=== PATIENT | male | born 1940 | race Caucasian/White ===

== ENCOUNTER 2019-10-08 15:41 | Emergency (ER) | payer OTHER ==
[~2019-10-08] VITALS: Ht 172.7 cm; Wt 85.3 kg
[2019-10-08] MEDS ORDERED: ATEN50 PO (16:16)
[2019-10-08] MEDS ORDERED: Benazepril HCl20 MG (16:17)
[2019-10-08] MEDS ORDERED: PROZAC20 MG (16:17)
[2019-10-08] MEDS ORDERED: DONEPEZIL HCL10 M1 (16:17)
[2019-10-08] MEDS ORDERED: MEMA10 (16:18)
[2019-10-08] MEDS ORDERED: Metformin HCl1000 MG (16:18)
[2019-10-08] MEDS ORDERED: BASAGLAR K100 UNIT/1 (16:18)
[2019-10-08] MEDS ORDERED: Pravastatin Sod80 MG (16:19)
[2019-10-08] MEDS ORDERED: Omeprazole Dr 40 Mg (16:19)
[2019-10-08] MEDS ORDERED: NOVOLOG FL100 UNIT/1 (16:19)
[2019-10-08] MEDS ORDERED: TAMSULOSIN HCL0.4 M1 (16:20)
[2019-10-08] MEDS ORDERED: Zanaflex4 MG (16:20)
[2019-10-08] MEDS ORDERED: Mobic15 MG PO (16:21)
[2019-10-08] MEDS ORDERED: Glucagon Emergen1 MG IM (16:21)
[2019-10-08] MEDS ORDERED: NITR.4SL SL (16:21)
[2019-10-08] MEDS ORDERED: Depo-Testos200 MG/ML IM (16:22)
== END 2019-10-08 17:10 | disposition home or self-care (01) ==
LOC: ER 15:41
DX: I95.9 Hypotension, unspecified (principal); I25.10 Atherosclerotic heart disease of native coronary artery without angina pectoris; E11.9 Type 2 diabetes mellitus without complications; I10 Essential (primary) hypertension; F03.90 Unspecified dementia, unspecified severity, without behavioral disturbance, psychotic disturbance, mood disturbance, and anxiety; N40.0 Benign prostatic hyperplasia without lower urinary tract symptoms; Z95.1 Presence of aortocoronary bypass graft; Z79.899 Other long term (current) drug therapy; Z79.4 Long term (current) use of insulin; R42 Dizziness and giddiness
CPT/HCPCS: 80053; 84484; 99283

== ENCOUNTER → 2019-10-08 | Outpatient (CLI) | payer OTHER ==
[~2019-10-08] MED LIST: ATEN50 PO; BASAGLAR K100 UNIT/1; Benazepril HCl20 MG; DONEPEZIL HCL10 M1; Depo-Testos200 MG/ML IM; Glucagon Emergen1 MG IM; MEMA10; Metformin HCl1000 MG; Mobic15 MG PO; NITR.4SL SL; NOVOLOG FL100 UNIT/1; Omeprazole Dr 40 Mg; PROZAC20 MG; Pravastatin Sod80 MG; TAMSULOSIN HCL0.4 M1; Zanaflex4 MG
[2019-10-08 15:04] LABS: BASOPHILS ABSOLUTE AUTO 0.05 K/mm3 (0.00-0.23); BASOPHILS PERCENT AUTO 0 % (0-2); EOSINOPHILS ABSOLUTE AUTO 0.35 K/mm3 (0.00-0.68); EOSINOPHILS PERCENT AUTO 3 % (0-6); Hematocrit 37.2 % (37.0-53.0); Hemoglobin 12.6 g/dL (13.5-17.5); IMMATURE GRAN ABSOLUTE AUTO 0.06 K/mm3 (0.00-0.10); IMMATURE GRAN PERCENT AUTO 1 % (0-1); LYMPHOCYTES ABSOLUTE AUTO 2.11 K/mm3 (0.84-5.20); LYMPHOCYTES PERCENT AUTO 16 % (21-46); MONOCYTES ABSOLUTE AUTO 0.98 K/mm3 (0.16-1.47); MONOCYTES PERCENT AUTO 8 % (4-13); Mean Corpuscular HGB 31.6 pg (26.0-34.0); Mean Corpuscular HGB Conc 33.9 g/dL (31.5-36.5); Mean Corpuscular Volume 93 fL (80-100); Mean Platelet Volume 9.9 fL (9.1-12.4); NEUTROPHILS ABSOLUTE AUTO 9.34 K/mm3 (1.96-9.15); NEUTROPHILS PERCENT AUTO 72 % (41-73); Platelet Count 224 K/mm3 (150-400); RDW Coefficient Variation 12.5 % (11.7-14.2); Red Blood Cell Count 3.99 M/mm3 (4.30-5.90); White Blood Cell Count 12.89 K/mm3 (4.00-11.30)
[2019-10-08 15:18] LABS: Alanine Aminotransfer (ALT/SGP 33 U/L (12-78); Albumin, Blood 3.7 g/dL (3.4-5.0); Albumin/Globulin Ratio 1.2 (0.8-1.8); Alk Phos 74 U/L (40-126); Anion Gap 8 mmol/L (6-16); Aspartate Aminotrans (AST/SGOT 16 U/L (12-37); Bilirubin, Total 0.3 mg/dL (0.1-1.0); Blood Urea Nitrogen 28 mg/dL (8-24); Bun/Creatinine Ratio 21.2 (12.0-20.0); CO2, Blood 25 mmol/L (21-32); Calcium, Blood 8.9 mg/dL (8.5-10.1); Chloride, Blood 104 mmol/L (98-108); Creatinine, Blood 1.32 mg/dL (0.60-1.20); Glomerular Filtration Rate 52 (60-); Glucose, Blood 202 mg/dL (70-99); Potassium, Blood 4.8 mmol/L (3.5-5.5); Sodium, Blood 137 mmol/L (136-145); Total Protein, Blood 6.7 g/dL (6.4-8.2); Troponin I <0.017 ng/mL (0.000-0.040)
== END | disposition home or self-care (01) ==
LOC: LAB EV 15:00 → LAB SHORT 15:00
PROVIDERS: Family Medicine
DX: R42 Dizziness and giddiness (principal)
CPT/HCPCS: 80053; 84484; 85025

== ENCOUNTER 2022-05-10 08:54 | Observation (INO) | payer OTHER ==
[~2022-05-10] VITALS: Ht 182.9 cm; Wt 72.5 kg
[~2022-05-10 08:54] MED LIST changes: -DONEPEZIL HCL10 M1; +DONEPEZIL HCL10 M1 PO; +GLUCOPHAGE1000 M1 PO; -MEMA10; +MEMA10 PO; -Metformin HCl1000 MG; -NOVOLOG FL100 UNIT/1; +NOVOLOG FL100 UNIT/3; -Omeprazole Dr 40 Mg; -PROZAC20 MG; +PROZAC20 MG PO; -Pravastatin Sod80 MG; +Pravastatin Sod80 MG PO; +Prilosec Otc20 MG PO; -TAMSULOSIN HCL0.4 M1; +TAMSULOSIN HCL0.4 M1 PO; -Zanaflex4 MG; +Zanaflex4 MG PO
[2022-05-10 09:53] LABS: BASOPHILS ABSOLUTE AUTO 0.04 K/mm3 (0.00-0.23); BASOPHILS PERCENT AUTO 1 % (0-2); EOSINOPHILS PERCENT AUTO 4 % (0-6); Hematocrit 35.7 % (37.0-53.0); Hemoglobin 12.5 g/dL (13.5-17.5); IMMATURE GRAN ABSOLUTE AUTO 0.03 K/mm3 (0.00-0.10); IMMATURE GRAN PERCENT AUTO 0 % (0-1); LYMPHOCYTES ABSOLUTE AUTO 2.45 K/mm3 (0.84-5.20); LYMPHOCYTES PERCENT AUTO 32 % (21-46); MONOCYTES ABSOLUTE AUTO 0.59 K/mm3 (0.16-1.47); MONOCYTES PERCENT AUTO 8 % (4-13); Mean Corpuscular HGB 31.2 pg (26.0-34.0); Mean Corpuscular Volume 89 fL (80-100); Mean Platelet Volume 9.9 fL (9.1-12.4); NEUTROPHILS ABSOLUTE AUTO 4.26 K/mm3 (1.96-9.15); NEUTROPHILS PERCENT AUTO 56 % (41-73); Platelet Count 230 K/mm3 (150-400); RDW Coefficient Variation 12.5 % (11.7-14.2); RDW Standard Deviation 41.3 fL (35.1-46.3); Red Blood Cell Count 4.01 M/mm3 (4.30-5.90); White Blood Cell Count 7.67 K/mm3 (4.00-11.30)
[2022-05-10 10:18] LABS: Albumin, Blood 3.9 g/dL (3.4-5.0); Albumin/Globulin Ratio 1.3 (0.8-1.8); Bilirubin, Total 0.4 mg/dL (0.1-1.0); Bun/Creatinine Ratio 25.2 (12.0-20.0); Calcium, Blood 9.9 mg/dL (8.5-10.1); Creatinine, Blood 1.11 mg/dL (0.60-1.20); Globulin, Blood 3.1 g/dL (2.2-4.0); Thyroid Stimulating Hormone 2.14 uIU/mL (0.360-4.800)
[2022-05-10 11:42] LABS: Source, Urine Straight Cath
[2022-05-10 11:47] LABS: Appearance, Urine Clear (Clear); Bilirubin, Urine Neg (Neg); Blood, Urine 2+ (Neg); Color, Urine Yellow (P-Yellow); Glucose Qualitative, Urine Neg (Neg); Ketones, Urine 3+ (Neg); Leukocyte Esterase, Urine Neg (Neg); Nitrite, Urine Neg (Neg); Protein, Urine 1+ (Neg); Urobilinogen, Urine NORM (Normal)
[2022-05-10 11:58] LABS: Granular Casts 0-2 /lpf (0); Mucus Mod (0-Heavy)
[2022-05-10 12:01] LABS: Bacteria Few /hpf; Squamous Epithelial Cells Few /hpf (Few); WBC Cast 0-2 /lpf (0)
--- NOTE | 2022-05-10 19:38 | NUR ---
SHIFT SUMMARY AND ADMISSION NOTE PT AxOx3 WITH INTERM CONFUSION. PT PLEASANT AND COOPERATIVE WITH CARE. PT ARRIVED ON MEDICAL FLOOR AT APPROX 1616 WITH AND SON AT BEDSIDE. PT ADMISSION COMPLETE. PT 1-2 ASSIST WITH FWW FOR RECENT HISTORY OF SYNCOPAL EPISODE. PT STATES HE IS NORMALLY COMPLETELY INDENPENDENT WITH HIS ADL'S. PT AGREES TO CALL BEFORE GETTING UP. BED ALARM ON FOR ADDED PRECAUTION. PLAN FOR STRESS TEST IN THE AM/CARDIAC WORK UP. VITALS REVIEWED. PT CURRENTLY RESTING IN BED WATCHING TV. CALL LIGHT IN REACH.
--- NOTE | 2022-05-11 04:09 | NUR ---
SHIFT SUMMARY 81 YR M ADMITTED ON 05/10/22 FOR AN EPISODE OF SYNCOPE. FULL CODE. NO ACUTE CHANGES THIS SHIFT. PT INSISTS ON GETTING UP TO THE BATHROOM ON HIS WON W/O CALLING, AND GETS IRRITATED WHEN THE BED ALARM GOES OFF. HE APPEARS TO BE FAIRLY STEADY ON HIS FEET BUT DUE TO ADMISSION DX HE IS ON FALL PRECAUTIONS. HE BECAME VERY AGITATED EARLY THIS A.M. BECAUSE THE PT IN THE ROOM NEXT TO HIM MOANED ALL NIGHT AND HE WAS UNABLE TO SLEEP. HE THREATENED TO CALL HIS TO PICK HIM UP AND TAKE HIM HOME AND STATED HE IS "NEVER COMING BACK HERE AGAIN". THIS NURSE DID HER BEST TO CALM HIM DOWN AND WAS ABLE TO GET HIM TO GO BACK TO BED. BED IN LOW POSITION AND CALL LIGHT WITHIN REACH.
[2022-05-11 04:55] LABS: BASOPHILS ABSOLUTE AUTO 0.04 K/mm3 (0.00-0.23); BASOPHILS PERCENT AUTO 1 % (0-2); EOSINOPHILS ABSOLUTE AUTO 0.32 K/mm3 (0.00-0.68); EOSINOPHILS PERCENT AUTO 5 % (0-6); Hematocrit 37.4 % (37.0-53.0); Hemoglobin 12.6 g/dL (13.5-17.5); IMMATURE GRAN ABSOLUTE AUTO 0.01 K/mm3 (0.00-0.10); IMMATURE GRAN PERCENT AUTO 0 % (0-1); LYMPHOCYTES ABSOLUTE AUTO 1.75 K/mm3 (0.84-5.20); LYMPHOCYTES PERCENT AUTO 29 % (21-46); MONOCYTES ABSOLUTE AUTO 0.53 K/mm3 (0.16-1.47); MONOCYTES PERCENT AUTO 9 % (4-13); Mean Corpuscular HGB 30.5 pg (26.0-34.0); Mean Corpuscular HGB Conc 33.7 g/dL (31.5-36.5); Mean Corpuscular Volume 91 fL (80-100); Mean Platelet Volume 10.1 fL (9.1-12.4); NEUTROPHILS ABSOLUTE AUTO 3.34 K/mm3 (1.96-9.15); NEUTROPHILS PERCENT AUTO 56 % (41-73); Platelet Count 216 K/mm3 (150-400); RDW Coefficient Variation 12.7 % (11.7-14.2); RDW Standard Deviation 41.7 fL (35.1-46.3); Red Blood Cell Count 4.13 M/mm3 (4.30-5.90); White Blood Cell Count 5.99 K/mm3 (4.00-11.30)
[2022-05-11 05:19] LABS: Bun/Creatinine Ratio 26.6 (12.0-20.0); Calcium, Blood 8.7 mg/dL (8.5-10.1); Creatinine, Blood 0.98 mg/dL (0.60-1.20); Magnesium, Blood 1.7 mg/dL (1.6-2.4); Potassium, Blood 4.3 mmol/L (3.5-5.5)
--- NOTE | 2022-05-11 09:25 | NUR ---
PATIENT BEING INJECTED WITH DYE FOR STRESS TEST NOW AND THEN CAN HAVE BREAKFAST TRAY, NO CAFFEINE, AND ONLY WATER UNTIL AFTER THE 3 PM IMAGING, AFTER THREE PM PATIENT CAN HAVE HIS LUNCH TRAY
--- NOTE | 2022-05-11 10:32 | NUR ---
PATIENT DOWN FOR FIRST PART OF STRESS TEST, PATIENT BECOMING NONCOOPERATIVE "THATS ALL BULLSHIT, THATS ALL A LIE, IM NOT STAYING HERE, I FEEL WORSE THAN WHEN I CAME IN", PATIENT DID NOT SLEEP ALL NIGHT DUE TO ROOM 349 MOANING ALL NIGHT. POSSIBLE AMA. REPORTED TO CHARGE YASSINE ZAMUDIO
--- NOTE | 2022-05-11 10:44 | NUR ---
YEN WAITING FOR PATIENT IN ROOM, UPDATED PATIENT CARE, FAMILY AWARE PATIENT IS UPSET AND DID NOT SLEEP, ENCOURAGED THEM TO TALK WITH HIM TO STAY, REPORTED TO DR SIMPSON PATIENTS BEHAVIOR, PATIENT STILL IN RADIOLOGY, WCTM
--- NOTE | 2022-05-11 10:53 | NUR ---
PATIENT BACK FROM IMAGING, FAMILY AT BEDSIDE
--- NOTE | 2022-05-11 12:55 | NUR ---
CHEST PAIN, MEDICATED X3 WITH NITRO, BP STABLE [id number], EKG DONE, TELE STARTED, TROPONIN LAB, REPORTED RESULTS TO DR SIMPSON. PATIENT NOW STATES "I WASNT IN PAIN" AT BEDSIDE IS HELPING WITH PATIENTS CONFUSION AND MEMORY, PATIENT DENIES ANY PAIN PRESENTLY
--- NOTE | 2022-05-11 14:56 | NUR ---
RADIOLOGY TAKING PATIENT DOWN FOR IMAGING
[2022-05-11] MEDS ORDERED: BASAGLAR K100 UNIT/3 SC (18:26)
[2022-05-11] MEDS ORDERED: NOVOLOG FL100 UNIT/3 SC (18:26)
[2022-05-11] MEDS ORDERED: BASAGLAR K100 UNIT/1 SC (18:29)
== END 2022-05-11 19:17 | disposition home or self-care (01) ==
LOC: ER 08:54 → ERHOLD 08:55 → MEDS 16:12
PROVIDERS: Emergency Medicine; ADMIT Internal Medicine
DX: R55 Syncope and collapse (principal); R07.9 Chest pain, unspecified; R41.82 Altered mental status, unspecified; F03.90 Unspecified dementia, unspecified severity, without behavioral disturbance, psychotic disturbance, mood disturbance, and anxiety; I24.9 Acute ischemic heart disease, unspecified; I12.9 Hypertensive chronic kidney disease with stage 1 through stage 4 chronic kidney disease, or unspecified chronic kidney disease; E11.22 Type 2 diabetes mellitus with diabetic chronic kidney disease; N18.30 Chronic kidney disease, stage 3 unspecified; I25.10 Atherosclerotic heart disease of native coronary artery without angina pectoris; F41.9 Anxiety disorder, unspecified; F32.A Depression, unspecified; E78.5 Hyperlipidemia, unspecified; N40.0 Benign prostatic hyperplasia without lower urinary tract symptoms; Z79.4 Long term (current) use of insulin; Z88.5 Allergy status to narcotic agent; Z91.030 Bee allergy status; Z79.899 Other long term (current) drug therapy; Z95.1 Presence of aortocoronary bypass graft
CPT/HCPCS: 36415; 70450; 71045; 78452; 80048; 80053; 81001; 82947; 83735; 83880; 84443; 84484; 85025; 93005; 93010; 93017; 93306; 96372; 96374; 99285-25; A9270; A9500; G0378; J0280; J1650; J2405; J2785